=== PATIENT | male | born 1975 | race Caucasian/White ===

== ENCOUNTER 2023-01-26 09:03 | Emergency (ER) | payer OTHER ==
[~2023-01-26] VITALS: Ht 170.2 cm; Wt 85.3 kg
== END 2023-01-26 15:34 | disposition home or self-care (01) ==
LOC: ER 09:03
PROVIDERS: General Practice
DX: R10.9 Unspecified abdominal pain (principal); Z91.013 Allergy to seafood; Z91.011 Allergy to milk products; R16.0 Hepatomegaly, not elsewhere classified; R31.9 Hematuria, unspecified; Z20.822 Contact with and (suspected) exposure to COVID-19; K76.0 Fatty (change of) liver, not elsewhere classified